=== PATIENT | male | born 1970 | race Caucasian/White ===

== ENCOUNTER 2023-12-25 10:53 | Emergency (ER) | payer OTHER ==
[~2023-12-25] VITALS: Ht 177.8 cm; Wt 81.6 kg
[2023-12-25 11:12] VITALS: BP_SYST 134; PULSE 86; RESP 20; TEMP 98.3; O2SAT 98
[2023-12-25 13:32] VITALS: BP_SYST 141; PULSE 75; RESP 16; O2SAT 98
[2023-12-25] MEDS ORDERED: PERC10 PO (13:53)
== END 2023-12-25 14:20 | disposition home or self-care (01) ==
LOC: SED 10:53
DX: S13.4XXA Sprain of ligaments of cervical spine, initial encounter (principal); S33.5XXA Sprain of ligaments of lumbar spine, initial encounter; S43.491A Other sprain of right shoulder joint, initial encounter; K21.9 Gastro-esophageal reflux disease without esophagitis; I10 Essential (primary) hypertension; V89.2XXA Person injured in unspecified motor-vehicle accident, traffic, initial encounter; Y93.89 Activity, other specified; Y92.89 Other specified places as the place of occurrence of the external cause; Y99.8 Other external cause status
CPT/HCPCS: 71045; 72040; 72100; 73030; 99284

== ENCOUNTER 2023-12-28 12:34 | Emergency (ER) | payer OTHER ==
[~2023-12-28] VITALS: Ht 182.9 cm; Wt 83.9 kg
[~2023-12-28 12:34] MED LIST: PERC10 PO
[2023-12-28 12:49] VITALS: BP_SYST 156; PULSE 85; RESP 18; TEMP 97.2; O2SAT 96
[2023-12-28] MEDS: OXYCODONE/ACETAMINOPHEN *10*mg/325 mg TABLET PO ONE (15:08)
[2023-12-28] MEDS ORDERED: IBUP-1969 PO (16:18)
[2023-12-28] MEDS ORDERED: PERC10 PO (16:18)
[2023-12-28 16:51] VITALS: BP_SYST 140; PULSE 86; RESP 18; TEMP 97.2; O2SAT 98
== END 2023-12-28 16:52 | disposition home or self-care (01) ==
LOC: SED 12:34
DX: M50.321 Other cervical disc degeneration at C4-C5 level (principal); I10 Essential (primary) hypertension; K21.9 Gastro-esophageal reflux disease without esophagitis; Z79.899 Other long term (current) drug therapy
CPT/HCPCS: 72125-TC; 99284